=== PATIENT | male | born 1945 | race Caucasian/White ===

== ENCOUNTER 2019-06-27 11:58 | Outpatient (CLI) | payer OTHER | END 2019-06-27 21:02 | disposition home or self-care (01) | LOC: SMI 11:58 | PROVIDERS: ATTEND Neurological Surgery | DX: M50.30 Other cervical disc degeneration, unspecified cervical region (principal) | CPT/HCPCS: 72141 ==

== ENCOUNTER 2019-08-10 09:58 | Outpatient (CLI) | payer OTHER, MEDICARE | END 2019-08-10 21:14 | disposition home or self-care (01) | LOC: SMI 09:58 | PROVIDERS: ATTEND Internal Medicine Cardiovascular Disease | DX: M16.0 Bilateral primary osteoarthritis of hip (principal); M89.38 Hypertrophy of bone, other site; N40.0 Benign prostatic hyperplasia without lower urinary tract symptoms | CPT/HCPCS: 73521; 73721 ==

== ENCOUNTER 2020-06-06 08:49 | Outpatient (CLI) | payer OTHER, MEDICARE | END 2020-06-06 20:32 | disposition home or self-care (01) | LOC: SMI 08:49 | DX: M19.011 Primary osteoarthritis, right shoulder (principal) | CPT/HCPCS: 73221 ==